=== PATIENT | female | born 1995 | race Caucasian/White ===

== ENCOUNTER 2018-04-18 11:30 | Emergency (ER) | payer SELFPAY ==
[2018-04-18 11:38] VITALS: BMI 26.2
--- NOTE | 2018-04-18 13:22 | PDOC ---
History of Present Illness - General Chief Complaint: Nausea/Vomiting Stated Complaint: NAUSEA, HEADACHE () Time Seen by Provider: 04/18/18 12:51 History Source: Patient - History of Present Illness Initial Comments: 04/18/18 13:21 22f with pmh of PCOS and appendectomy presents with vomiting for the past 3 weeks and right sided pelvic pain for the past 2 days. She is currently , unknown gestation time. She has PCOS and her last period was 6 months ago. The pain is dull with occasional sharp exacerbations when when she lays on the right side too long. She takes metformin for PCOS. This is her second , got a positive preg test 2 weeks ago. Did not seek appointment with OBGYN because she doesn't have insurance, First was a miscarriage. She had constant nausea and low appetite. 04/18/18 13:28 Denies any vaginal discharge. spotting or dysuria. Past History - Past Medical History Allergies/Adverse Reactions: Allergies Allergy/AdvReac Type Severity Reaction Status Date / Time nitrofurantoin Allergy Verified 04/18/18 11:37 Home Medications: Ambulatory Orders Vitamins (Sjr) - 1 tab PO DAILY 04/18/18 Asthma: Yes COPD: No - Surgical History Appendectomy: Yes - Suicide/Smoking/Psychosocial Hx Smoking History: Never smoked Review of Systems - Review of Systems Able to Perform ROS?: Yes Is the patient limited Divehi proficient: No Constitutional: No: Symptoms Reported HEENTM: No: Symptoms Reported Respiratory: No: Symptoms reported Cardiac (ROS): No: Symptoms Reported ABD/GI: Yes: See HPI : No: Symptoms Reported Musculoskeletal: No: Symptoms Reported Integumentary: No: Symptoms Reported Neurological: No: Symptoms reported All Other Systems: Reviewed and Negative *Physical Exam - Vital Signs Last Vital Signs Temp Pulse Resp BP Pulse Ox 97.5 F L 86 18 136/72 100 04/18/18 11:35 04/18/18 11:35 04/18/18 11:35 04/18/18 11:35 04/18/18 11:35 - Physical Exam General Appearance: Yes: Nourished, Appropriately Dressed. No: Apparent Distress HEENT: positive: EOMI, BRENDA, Normal ENT Inspection Respiratory/Chest: positive: Lungs Clear, Normal Breath Sounds. negative: Chest Tender, Respiratory Distress Cardiovascular: positive: Regular Rhythm, Regular Rate, S1, S2 Gastrointestinal/Abdominal: positive: Normal Bowel Sounds, Tender (lrq/adnexal) , Flat, Soft Extremity: positive: Normal Capillary Refill, Normal Inspection, Normal Range of Motion Neurologic: positive: Fully Oriented, Alert, Normal Mood/Affect, Normal Response , Motor Strength 5/5 Moderate Sedation - Procedure Monitoring Vital Signs: Procedure Monitoring Vital Signs Temperature 97.5 F L 04/18/18 11:35 Pulse Rate 86 04/18/18 11:35 Respiratory Rate 18 04/18/18 11:35 Blood Pressure 136/72 04/18/18 11:35 O2 Sat by Pulse Oximetry (%) 100 04/18/18 11:35 ED Treatment Course - LABORATORY CBC & Chemistry Diagram: 04/18/18 13:33 04/18/18 13:24 - RADIOLOGY Radiology Studies Ordered: Category Date Time Status <14WKS US [US] Stat Ultrasound 04/18/18 13:04 Ordered Medical Decision Making - Medical Decision Making 04/18/18 13:30 ectopic preg vs torsion vs pancreatitis WIll get beta hcg and US 04/18/18 14:49 04/18/18 16:37 Patient is 8w . Will give follow up with OBGYN at [facility] as she does not have insurance. *DC/Admit/Observation/Transfer Diagnosis at time of Disposition: First trimester - Discharge Dispostion Disposition: HOME Condition at time of disposition: Improved Decision to Admit order: No - Referrals - Patient Instructions Printed Discharge Instructions: DI for -- Discomforts and Remedies Additional Instructions: Follow up with [facility]'s [facility] services at [facility] at [address] [place] [address]. Come back to the ER for any new, worsening or concerning symptoms. - Post Discharge Activity
[2018-04-18 13:41] LABS: BASO % 0.6 % (0-2.0); EOS % 0.4 % (0-4.5); HEMATOCRIT 40.4 % (32.4-45.2); HEMOGLOBIN 13.5 GM/dL (10.7-15.3); LYMPH % 10.8 % (8-40); MCHC 33.4 g/dl (32.0-36.0); MEAN CELL VOLUME 92.7 fl (80-96); MEAN PLT VOLUME 8.5 fl (7.5-11.1); MONO % 5.4 % (3.8-10.2); NEUT % 82.8 % (42.8-82.8); PLATELET COUNT 291 K/MM3 (134-434); RBC 4.36 M/mm3 (3.60-5.2); RDW 13.3 % (11.6-15.6); WHITE BLOOD COUNT 14.2 K/mm3 (4.0-10.0)
[2018-04-18 13:42] LABS: URINE APPEARANCE SLCLOUDY; URINE BILIRUBIN NEGATIVE (<2.0 mg/dL); URINE COLOR YELLOW; URINE GLUCOSE (UA) NEGATIVE (NEGATIVE); URINE KETONE NEGATIVE (NEGATIVE); URINE LEUK ESTERASE NEGATIVE (NEGATIVE); URINE NITRITE NEGATIVE (NEGATIVE); URINE PROTEIN NEGATIVE (NEGATIVE); URINE UROBILINOGEN NEGATIVE mg/dL (0.2-1.0)
--- NOTE | 2018-04-18 14:06 | PDOC ---
Attending Attestation - Resident Resident Name: Horace Sutton - ED Attending Attestation I have performed the following: I have examined & evaluated the patient, The case was reviewed & discussed with the resident, I agree w/resident's findings & plan, Exceptions are as noted - Physicial Exam PE: 04/18/18 14:23 Patient is awake and alert, well-appearing Normal cephalic, atraumatic PERRLA, EOMI mm-dry cta rrr Abdomen soft, nondistended, minimal right lower pelvic tenderness to deep palpation without guarding rebound - Medical Decision Making 04/18/18 14:24 22-year-old female, 2 para 0, unknown gestational age with no previous care presents with signs and symptoms of hyperemesis and mild right lower pelvic pain. Patient's status post appendectomy in the past. Will rule out ectopic; we'll administer D5 LR with Reglan. Will reassess. <Jagdish Boogie - Last Filed: 04/18/18 14:23> - HPI HPI: This patient is a 22 F with PMHx of PCOS, who is currently , and presents with approx. 3 weeks of vomit and 2 days of right sided pelvic pain. Patient states that her LMP was 6 months ago. She states that 2 weeks ago she took an OTC test that came back positive. She states that she hasnt seeked care due to not having insurance. She states that she has been once in the past that ended in a miscarriage since the fetus was not viable due to congenital heart condition. She now comes in with 2 days right adnexal tenderness as well as persistent nausea and vomiting.She describes the pain as dull with occasional sharp exacerbations when when she lays on her right side too long. Past Surgical Hx: Appendectomy 04/18/18 14:35 <Sudha Cook - Last Filed: 04/18/18 14:35>
[2018-04-18] MEDS ORDERED: METOCLOPRAMIDE HCL INJECTION 10 MG/2 ML VIAL IVPUSH ONE (14:11)
[2018-04-18] MEDS ORDERED: DEXTROSE 5%-LACTATED RINGERS 1,000 ML IV SCH (14:15)
[2018-04-18] MEDS ORDERED: METOCLOPRAMIDE HCL INJECTION 10 MG/2 ML VIAL ONE (14:31)
[2018-04-18 14:59] LABS: ALK PHOS 57 U/L (45-117); ANION GAP 8 MMOL/L (8-16); BILIRUBIN,TOTAL 0.3 mg/dL (0.2-1); BLOOD UREA NITROGEN 9 mg/dL (7-18); CALCIUM 9.2 mg/dL (8.5-10.1); CHLORIDE 100 mmol/L (98-107); CO2 24 mmol/L (21-32); CREATININE 0.6 mg/dL (0.55-1.3); GLUCOSE,RANDOM 79 mg/dL (74-106); POTASSIUM 3.8 mmol/L (3.5-5.1); SGOT/AST 21 U/L (15-37); SGPT/ALT 43 U/L (13-61); SODIUM 133 mmol/L (136-145); TOT PROT 8.1 g/dl (6.4-8.2)
[2018-04-18] MEDS ORDERED: PANTOPRAZOLE SODIUM 40 MG VIAL IVPUSH ONE (15:27)
[2018-04-18] MEDS ORDERED: PANTOPRAZOLE SODIUM 40 MG/100 ML BAG IVPB ONE (16:06)
[2018-04-18 18:25] VITALS: BP 128/68; PULSE 80; TEMP 98.1
[2018-04-19 04:14] LABS: LIPASE 127 U/L (73-393)
== END 2018-04-18 18:39 | disposition home or self-care (01) ==
LOC: JER 11:30
PROC: 3E033GC Introduction of Other Therapeutic Substance into Peripheral Vein, Percutaneous Approach (ICD-10-PCS; principal; 2018-04-18)
DX: O26.891 Other specified pregnancy related conditions, first trimester (principal); Z3A.00 Weeks of gestation of pregnancy not specified; J45.909 Unspecified asthma, uncomplicated
CPT/HCPCS: 36415; 76801-TC; 80053; 81003; 83690; 84702; 85025; 86850; 86900; 86901; 87086; 87186; 99283-25

== ENCOUNTER 2018-06-30 01:21 | Emergency (ER) | payer OTHER ==
[2018-06-30 02:08] VITALS: BP 117/72; PULSE 90; TEMP 99.2; BMI 32.8
[2018-06-30] MEDS ORDERED: ACETAMINOPHEN 325 MG TABLET (FP) PO ONE (02:25)
--- NOTE | 2018-06-30 02:26 | PDOC ---
History of Present Illness - General Chief Complaint: Pain Stated Complaint: SHARP RIB PAIN/19WKS Time Seen by Provider: 06/30/18 01:51 History Source: Patient Exam Limitations: No Limitations Past History - Past Medical History Allergies/Adverse Reactions: Allergies Allergy/AdvReac Type Severity Reaction Status Date / Time nitrofurantoin Allergy Verified 06/30/18 02:06 Home Medications: Ambulatory Orders Ondansetron [Zofran *Odt*] 8 mg SL BID #20 od.tablet 04/18/18 Vitamins (Sjr) - 1 tab PO DAILY 04/18/18 Asthma: Yes COPD: No - Surgical History Appendectomy: Yes - Suicide/Smoking/Psychosocial Hx Smoking History: Never smoked Have you smoked in the past 12 months: No Information on smoking cessation initiated: No Hx Alcohol Use: No Drug/Substance Use Hx: No *Physical Exam - Vital Signs Last Vital Signs Temp Pulse Resp BP Pulse Ox 99.2 F 90 18 117/72 100 06/30/18 02:07 06/30/18 02:07 06/30/18 02:07 06/30/18 02:07 06/30/18 02:07 - Physical Exam General Appearance: No: Apparent Distress Respiratory/Chest: positive: Lungs Clear, Normal Breath Sounds. negative: Chest Tender, Respiratory Distress Cardiovascular: positive: Regular Rhythm, Regular Rate, S1, S2. negative: Murmur Gastrointestinal/Abdominal: positive: Other (gravid uterus) Extremity: negative: Swelling, Calf Tenderness Integumentary: positive: Normal Color Neurologic: positive: Alert, Normal Mood/Affect Moderate Sedation - Procedure Monitoring Vital Signs: Procedure Monitoring Vital Signs Temperature 99.2 F 06/30/18 02:07 Pulse Rate 90 06/30/18 02:07 Respiratory Rate 18 06/30/18 02:07 Blood Pressure 117/72 06/30/18 02:07 O2 Sat by Pulse Oximetry (%) 100 06/30/18 02:07 ED Treatment Course - LABORATORY CBC & Chemistry Diagram: 06/30/18 03:10 06/30/18 03:10 Medical Decision Making - Medical Decision Making 22 y/o F currently 19 weeks (hx of 1 miscarriage) presents with L sided rib pain which started yesterday that is worse with movement of body and inspiration along with mild SOB. Also had 1 episode of NBNB emesis. Denies fever , chills, cough, cp, abd pain, vaginal bleeding, urinary complaints Consider PE given patient Not clinically suspicious for DVT Bedside ultrasound done showing FHR at 140 bpm Plan: Labs, Tylenol 06/30/18 02:26 D-dimer 1103 ( adjusted D-dimer for second trimester is <1000) Patient discussed CT imaging; also discussed getting BLE US to r/o clot legs if hesitant about getting a CT However, patient does not want to wait for ultrasound and also not comfortable with getting a CT scan done Has noted improvement in rib pain Patient signed out AMA; risks including possible discussed Patient is A&Ox3 and has capacity to make decisions She has f/u with her CLERICAL METHODS ANALYST in 2 days Advised to return for any worsening symptoms 06/30/18 04:48 *DC/Admit/Observation/Transfer Diagnosis at time of Disposition: Rib pain on left side - Discharge Dispostion Disposition: AGAINST MEDICAL ADVICE Condition at time of disposition: Stable Decision to Admit order: No - Referrals - Patient Instructions Additional Instructions: Thank you for choosing [facility]. It was a pleasure taking care of you. There was concern for a clot in your lungs, for which you were recommended for CT scan of chest or to consider getting ultrasound of your legs to rule out clot in legs Risks of not getting studies done include worsening of condition or possible Be sure to follow-up with your CLERICAL METHODS ANALYST in 2 days Return to the Emergency Department if your symptoms worsen or persist, have chest pain, shortness of breath, cough up blood, severe abdominal pain, vaginal bleeding or other concerning symptoms. - Post Discharge Activity
[2018-06-30] MEDS ORDERED: ACETAMINOPHEN 325 MG TABLET (FP) ONE (03:11)
[2018-06-30 03:21] LABS: BASO % 0.9 % (0-2.0); HEMATOCRIT 35.8 % (32.4-45.2); HEMOGLOBIN 12.7 GM/dL (10.7-15.3); LYMPH % 16.1 % (8-40); MCH 33.8 pg (25.7-33.7); MCHC 35.4 g/dl (32.0-36.0); MEAN CELL VOLUME 95.2 fl (80-96); MEAN PLT VOLUME 8.9 fl (7.5-11.1); MONO % 7.8 % (3.8-10.2); NEUT % 74.2 % (42.8-82.8); PLATELET COUNT 254 K/MM3 (134-434); RBC 3.76 M/mm3 (3.60-5.2); RDW 13.5 % (11.6-15.6); WHITE BLOOD COUNT 14.1 K/mm3 (4.0-10.0)
[2018-06-30 03:45] LABS: ANION GAP 10 MMOL/L (8-16); BLOOD UREA NITROGEN 9 mg/dL (7-18); CALCIUM 9.2 mg/dL (8.5-10.1); CHLORIDE 106 mmol/L (98-107); CO2 21 mmol/L (21-32); CREATININE 0.4 mg/dL (0.55-1.3); GLUCOSE,RANDOM 91 mg/dL (74-106); POTASSIUM 3.9 mmol/L (3.5-5.1); SODIUM 137 mmol/L (136-145)
== END 2018-06-30 05:07 | disposition left against medical advice (07) ==
LOC: JER 01:21
PROC: BY4CZZZ Ultrasonography of Second Trimester, Single Fetus (ICD-10-PCS; principal; 2018-06-30)
DX: O26.892 Other specified pregnancy related conditions, second trimester (principal); R07.81 Pleurodynia; Z3A.19 19 weeks gestation of pregnancy
CPT/HCPCS: 36415; 76801-TC; 80048; 85025; 85379; 99282-25

== ENCOUNTER 2018-11-14 08:00 | Inpatient (IN) | payer OTHER ==
[2018-11-19 17:32] VITALS: BMI 37.8
[2018-11-19 17:39] LABS: BASO % 0.7 % (0-2.0); EOS % 0.5 % (0-4.5); HEMATOCRIT 26.9 % (32.4-45.2); HEMOGLOBIN 8.6 GM/dL (10.7-15.3); LYMPH % 14.1 % (8-40); MCH 25.1 pg (25.7-33.7); MCHC 32.2 g/dl (32.0-36.0); MEAN CELL VOLUME 77.9 fl (80-96); MEAN PLT VOLUME 9.5 fl (7.5-11.1); MONO % 4.5 % (3.8-10.2); NEUT % 80.2 % (42.8-82.8); PLATELET COUNT 168 K/MM3 (134-434); RBC 3.45 M/mm3 (3.60-5.2); WHITE BLOOD COUNT 9.6 K/mm3 (4.0-10.0)
[2018-11-19 17:52] LABS: INR 0.98 (0.83-1.09); PROTHROMBIN TIME (PATIENT) 11.6 SEC (9.7-13.0)
[2018-11-19 17:55] LABS: ACTIVATED PTT 24.6 SECONDS (25.2-36.5)
[2018-11-19 18:07] LABS: BLOOD UREA NITROGEN 8.4 mg/dL (7-18); CALCIUM 8.7 mg/dL (8.5-10.1); CREATININE 0.6 mg/dL (0.55-1.3); POTASSIUM 3.5 mmol/L (3.5-5.1)
[2018-11-19] MEDS ORDERED: DEXTROSE 5%-LACTATED RINGERS 1,000 ML IV SCH (19:00)
[2018-11-19] MEDS ORDERED: DINOPROSTONE 10 MG VAGINAL SUPPOSITORY VG ONE (19:03)
--- NOTE | 2018-11-19 19:09 | HP ---
Past Medical History - Admission Chief Complaint: Induction of labor History of Present Illness: 23 yo , @ 39.5 weeks gestation, seen in office today and was sent for induction of labor due to suspicion of macrosomia. Upon admission she was 1cm dilated. History Source: Patient Limitations to Obtaining History: No Limitations - Past Medical History ...: 2 ...Para: 0 ...Term: 0 ...: 0 ...Spon : 1 ...Induced : 0 ...Multiple Gestation: 0 ...EDC by Sono: 11/21/18 - Past Surgical History Past Surgical History: Yes: None Hx Myomectomy: No Hx Transabdominal Cerclage: No - Smoking History Smoking history: Never smoked Have you smoked in the past 12 months: No - Alcohol/Substance Use Hx Alcohol Use: No - Social History Usual Living Arrangement: Yes: With Significant Other History of Recent Travel: No Home Medications - Allergies Allergies/Adverse Reactions: Allergies Allergy/AdvReac Type Severity Reaction Status Date / Time nitrofurantoin Allergy Verified 11/19/18 17:21 - Home Medications Home Medications: Ambulatory Orders Albuterol Sulfate Inhaler - [Ventolin Hfa Inhaler -] 1 - 2 inh PO Q4H PRN Family Disease History - Family Disease History Family History: Unremarkable Review of Systems - Review of Systems Constitutional: reports: No Symptoms Eyes: reports: No Symptoms HENT: reports: No Symptoms Neck: reports: No Symptoms Cardiovascular: reports: No Symptoms Respiratory: reports: No Symptoms Gastrointestinal: reports: No Symptoms Genitourinary: reports: Pain Breasts: reports: No Symptoms Reported Musculoskeletal: reports: No Symptoms Integumentary: reports: No Symptoms Neurological: reports: No Symptoms Endocrine: reports: No Symptoms Hematology/Lymphatic: reports: No Symptoms Psychiatric: reports: No Symptoms Pain Intensity: 3 Physical Exam - Maternity Vital Signs: Vital Signs Temperature 98.2 F 11/19/18 18:00 Pulse Rate 89 11/19/18 18:00 Respiratory Rate 18 11/19/18 18:00 Blood Pressure 131/72 11/19/18 18:00 O2 Sat by Pulse Oximetry (%) Constitutional: Yes: Well Nourished Eyes: Yes: Conjunctiva Clear HENT: Yes: Atraumatic Neck: Yes: Supple Cardiovascular: Yes: Regular Rate and Rhythm Lungs: Clear to auscultation Breast(s): Yes: WNL - Abdominal Exam/OB Number of Fetuses: Single Presentation: Vertex - Vaginal Exam/OB Dilatation (cm): 1 Effacement (%): 60 Amniotic Membrane Status: Intact Presentation: Vertex/Position Station: -3 - Physical Exam Integumentary: Yes: WNL ...Motor Strength: WNL Psychiatric: Yes: Alert, Oriented - Labs Lab Results: CBC, BMP 11/19/18 17:20 11/19/18 17:20 Problem List - Problems (1) 39 weeks gestation of Code(s): Z3A.39 - 39 WEEKS GESTATION OF (2) Macrosomia Code(s): P08.0 - EXCEPTIONALLY LARGE BABY Assessment/Plan 39 weeks gestation Suspicion of macrosomia Cervidil induction Re-evaluate in 12 hours or before if indicated
[2018-11-20] MEDS ORDERED: AMPICILLIN SODIUM 2 GM VIAL ONE (04:27)
[2018-11-20] MEDS ORDERED: AMPICILLIN - 2 GM in SODIUM CHLORIDE 100 ML IVPB ONE (04:30)
[2018-11-20] MEDS ORDERED: FENTANYL/BUPIVACAINE/NS/PF - PCEA - 50 ML DISP.SYRIN EP ONE ×3 (08:26→17:34)
[2018-11-20] MEDS ORDERED: AMPICILLIN SODIUM 1 GM VIAL ONE ×3 (08:26→16:00)
[2018-11-20] MEDS ORDERED: LIDO 2%/EPI 1:200000 PRESRVFRE (20 ML SDVIAL) ONE (08:32)
[2018-11-20] MEDS ORDERED: BUPIVACAINE HCL/PF 0.25% (2.5MG/ML) 10 ML VIAL ONE (08:32)
--- NOTE | 2018-11-20 08:33 | PN ---
Progress Note (short form) - Note Progress Note: Patient seen and evaluated, she c/o moderate discomfort. She's status post cervidil induction. FHR : Reassuring [place] : + irregular contractions VE : 4 70/-3 AROM ( clear ) A/P 39 weeks gestation Suspicion of macrosomia Polyhydramnios Epidural anesthesia Pitocin augmentation Anticipate Problem List - Problems (1) 39 weeks gestation of Code(s): Z3A.39 - 39 WEEKS GESTATION OF (2) Macrosomia Code(s): P08.0 - EXCEPTIONALLY LARGE BABY
[2018-11-20] MEDS ORDERED: OXYTOCIN 30 UNITS in 0.9% NS 30 UNIT/500 ML INFUS.BAG IVPB SCH (08:45)
[2018-11-20] MEDS ORDERED: NALOXONE HCL 0.4 MG/ML VIAL IVPUSH PRN (08:58)
[2018-11-20] MEDS: AMPICILLIN - 1 GM in SODIUM CHLORIDE 100 ML IVPB SCH ×4 (09:00→20:43)
[2018-11-20] MEDS ORDERED: FENTANYL/BUPIVACAINE/NS/PF - PCEA - 50 ML DISP.SYRIN EP SCH (09:00)
[2018-11-20] MEDS ORDERED: OXYTOCIN 30 UNITS in 0.9% NS 30 UNIT/500 ML INFUS.BAG IVPB ONE (09:11)
[2018-11-20] MEDS ORDERED: ELECTROLYTE-148 SOLN 1,000 ML IV SCH ×2 (17:15→17:45)
[2018-11-20] MEDS ORDERED: CITRIC ACID/SODIUM CITRATE 30 ML UNIT-DOSE CUP PO ONE (20:03)
--- NOTE | 2018-11-20 20:03 | PN ---
Progress Note (short form) - Note Progress Note: Patient seen and evaluated, she's lying in bed; epidural in place. She's on Pitocin augmentation. FHR : Reassuring [place] : + regular contractions VE : /-2 A/P 39 weeks gestation Suspicion of macrosomia Polyhydramnios Arrest of dilatation Pre op for primary Prep and shave Consent signed Problem List - Problems (1) 39 weeks gestation of Code(s): Z3A.39 - 39 WEEKS GESTATION OF (2) Macrosomia Code(s): P08.0 - EXCEPTIONALLY LARGE BABY
[2018-11-20] MEDS ORDERED: OXYTOCIN 20 UNITS in 0.9% NS 20 UNIT/1,000 ML INFUS.BAG IV ONE (20:32)
[2018-11-20] MEDS ORDERED: SODIUM CHLORIDE 0.9% P/F 10 ML VIAL IJ ONE (21:05)
[2018-11-20] MEDS ORDERED: ceFAZolin SODIUM 1 GM VIAL ONE (21:05)
[2018-11-20] MEDS ORDERED: ONDANSETRON 4 MG/2 ML VIAL IVPUSH PRN (21:13)
[2018-11-20] MEDS ORDERED: OXYTOCIN 10 UNITS/ML VIAL ONE (21:35)
[2018-11-20] MEDS ORDERED: KETOROLAC TROMETHAMINE 30 MG/1 ML VIAL ONE (21:44)
[2018-11-20] MEDS ORDERED: METHYLERGONOVINE MALEATE 0.2 MG/1 ML AMP IM PRN (22:22)
[2018-11-20] MEDS ORDERED: IBUPROFEN 800 MG/8 ML IJ IVPB PRN (22:22)
--- NOTE | 2018-11-20 22:27 | OP ---
Operative Note - Note: Operative Date: 11/20/18 Pre-Operative Diagnosis: 39 weeks gestation / Suspected macrosomia / Arrest of dilatation Operation: Primary Low Transverse Findings: Large baby boy in cephallic position Post-Operative Diagnosis: Other (Arrest of dilatation / Macrosomia) Surgeon: Hoa Corbett Political Researcher: Erin Allan Anesthesia: Epidural Specimens Removed: Placenta Estimated Blood Loss (mls): 700 Operative Report Dictated: Yes
[2018-11-20] MEDS ORDERED: OXYTOCIN 20 UNITS in 0.9% NS 20 UNIT/1,000 ML INFUS.BAG IV SCH (22:30)
--- NOTE | 2018-11-21 06:33 | PN ---
Post Note - Post Date of Delivery: 11/20/18 Post Day: 1 Vital Signs: Vital Signs - 24 hr 11/20/18 11/20/18 11/20/18 08:00 08:55 09:00 Temperature 98 F Pulse Rate 71 79 82 Respiratory 20 17 17 Rate Blood Pressure 136/80 123/73 128/77 O2 Sat by Pulse 100 100 Oximetry (%) 11/20/18 11/20/18 11/20/18 09:05 09:10 09:25 Temperature Pulse Rate 78 78 70 Respiratory 17 17 17 Rate Blood Pressure 125/72 118/70 117/74 O2 Sat by Pulse 100 100 100 Oximetry (%) 11/20/18 11/20/18 11/20/18 09:45 10:00 10:15 Temperature 98.2 F Pulse Rate 71 74 69 Respiratory 17 17 16 Rate Blood Pressure 117/66 119/72 113/69 O2 Sat by Pulse 100 100 100 Oximetry (%) 11/20/18 11/20/18 11/20/18 10:30 10:45 11:00 Temperature Pulse Rate 83 75 71 Respiratory 16 16 16 Rate Blood Pressure 114/71 106/62 113/67 O2 Sat by Pulse 100 100 100 Oximetry (%) 11/20/18 11/20/18 11/20/18 11:15 11:30 11:45 Temperature 98.3 F Pulse Rate 68 69 74 Respiratory 16 16 16 Rate Blood Pressure 118/66 118/64 114/72 O2 Sat by Pulse 100 100 100 Oximetry (%) 11/20/18 11/20/18 11/20/18 12:00 12:15 12:30 Temperature Pulse Rate 74 82 71 Respiratory 16 82 H 17 Rate Blood Pressure 118/68 118/81 121/79 O2 Sat by Pulse 100 16 L 100 Oximetry (%) 11/20/18 11/20/18 11/20/18 12:45 13:00 13:15 Temperature Pulse Rate 74 72 74 Respiratory 16 16 18 Rate Blood Pressure 117/71 116/71 118/71 O2 Sat by Pulse 100 100 100 Oximetry (%) 11/20/18 11/20/18 11/20/18 13:30 13:45 14:00 Temperature 98.2 F Pulse Rate 69 73 71 Respiratory 17 16 17 Rate Blood Pressure 116/71 115/73 117/74 O2 Sat by Pulse 100 100 100 Oximetry (%) 11/20/18 11/20/18 11/20/18 14:15 14:30 14:45 Temperature Pulse Rate 72 72 72 Respiratory 16 16 16 Rate Blood Pressure 122/70 125/75 123/77 O2 Sat by Pulse 100 100 100 Oximetry (%) 11/20/18 11/20/18 11/20/18 15:00 15:15 15:30 Temperature Pulse Rate 67 68 77 Respiratory 16 17 17 Rate Blood Pressure 125/71 119/71 123/75 O2 Sat by Pulse 100 100 100 Oximetry (%) 11/20/18 11/20/18 11/20/18 15:45 16:00 16:15 Temperature 98.2 F Pulse Rate 72 71 72 Respiratory 16 16 17 Rate Blood Pressure 127/82 121/74 124/77 O2 Sat by Pulse 100 99 100 Oximetry (%) 11/20/18 11/20/18 11/20/18 16:30 16:45 17:00 Temperature 98.6 F Pulse Rate 70 73 75 Respiratory 17 17 17 Rate Blood Pressure 122/80 126/81 125/83 O2 Sat by Pulse 99 100 100 Oximetry (%) 11/20/18 11/20/18 11/20/18 17:15 17:30 17:45 Temperature Pulse Rate 71 84 72 Respiratory 17 17 17 Rate Blood Pressure 127/83 128/82 127/82 O2 Sat by Pulse 100 100 100 Oximetry (%) 11/20/18 11/20/18 11/20/18 18:00 18:15 18:30 Temperature Pulse Rate 79 79 80 Respiratory 17 17 16 Rate Blood Pressure 131/88 111/63 111/63 O2 Sat by Pulse 100 100 97 Oximetry (%) 11/20/18 11/20/18 11/20/18 18:45 19:00 19:15 Temperature 98.2 F Pulse Rate 84 80 76 Respiratory 17 18 18 Rate Blood Pressure 110/67 120/66 105/62 O2 Sat by Pulse 98 98 99 Oximetry (%) 11/20/18 11/20/18 11/20/18 19:30 19:44 19:45 Temperature Pulse Rate 80 81 Respiratory 18 18 Rate Blood Pressure 104/61 104/60 O2 Sat by Pulse 97 99 97 Oximetry (%) 11/20/18 11/20/18 11/20/18 20:00 20:50 21:00 Temperature Pulse Rate 84 82 79 Respiratory 18 17 17 Rate Blood Pressure 120/76 132/80 133/80 O2 Sat by Pulse 99 100 100 Oximetry (%) 11/20/18 11/20/18 11/20/18 21:15 22:35 22:45 Temperature Pulse Rate 78 81 80 Respiratory 17 17 17 Rate Blood Pressure 132/81 123/58 L 117/55 L O2 Sat by Pulse 100 100 100 Oximetry (%) 11/20/18 11/20/18 11/20/18 23:00 23:15 23:30 Temperature 98.4 F Pulse Rate 78 77 76 Respiratory 17 17 17 Rate Blood Pressure 116/61 120/60 114/59 L O2 Sat by Pulse 100 100 100 Oximetry (%) 11/20/18 11/21/18 11/21/18 23:45 00:00 00:54 Temperature 98.9 F 98.8 F Pulse Rate 82 80 78 Respiratory 17 18 18 Rate Blood Pressure 117/64 117/67 121/73 O2 Sat by Pulse 98 99 Oximetry (%) 11/21/18 11/21/18 11/21/18 02:00 04:00 05:43 Temperature 99.4 F Pulse Rate 91 H Respiratory 18 18 18 Rate Blood Pressure 121/74 O2 Sat by Pulse Oximetry (%) 11/21/18 06:00 Temperature 97.9 F Pulse Rate 107 H Respiratory 20 Rate Blood Pressure 114/61 O2 Sat by Pulse Oximetry (%) Labs: Laboratory Results - last 24 hr 11/19/18 17:20 RPR Titer Nonreactive - Subjective Subjective: No Complaints - Objective Afebrile: Yes Abdomen: Soft, Non-tender Uterus: Fundus firm Vagina: Scant lochia Extremities: Non-tender - Assessment/Plan (1) delivery delivered Assessment: Other (POD 1) Plan: Routine Care
[2018-11-21 06:53] LABS: BASO % 0.3 % (0-2.0); EOS % 0.9 % (0-4.5); HEMATOCRIT 22.1 % (32.4-45.2); LYMPH % 14.5 % (8-40); MCH 24.7 pg (25.7-33.7); MCHC 31.5 g/dl (32.0-36.0); MEAN CELL VOLUME 78.2 fl (80-96); MONO % 6.6 % (3.8-10.2); NEUT % 77.7 % (42.8-82.8); PLATELET COUNT 140 K/MM3 (134-434); RBC 2.83 M/mm3 (3.60-5.2); RDW 19.4 % (11.6-15.6); WHITE BLOOD COUNT 9.6 K/mm3 (4.0-10.0)
[2018-11-21] MEDS ORDERED: PNEUMOC 13-VAL CONJ-DIP CRM/PF 0.5 ML DISP.SYRIN IM ONE (10:00)
[2018-11-21] MEDS ORDERED: PNEUMOCOCCAL 23 VACCINE 0.5 ML VIAL IM ONE (10:00)
--- NOTE | 2018-11-21 10:56 | PN ---
Progress Note (short form) - Note Progress Note: Post op day#1.S/P C Section under epidural anesthesia with duramorph uneventful.Patient stable and has little pain for which she is on medication.No any anesthesia related problem.Patient Dc from the anesthesia care.
[2018-11-21] MEDS: ACETAMINOPHEN 325 MG TABLET (FP) PO PRN (18:57)
[2018-11-21] MEDS: IBUPROFEN 600 MG TABLET (FP) PO PRN (18:57)
[2018-11-21] MEDS: oxyCODONE HCL 5 MG TABLET PO PRN (21:09)
[2018-11-21] MEDS: SIMETHICONE 80 MG TAB.CHEW (FP) PO PRN (21:09)
[2018-11-21] MEDS ORDERED: BISACODYL 10 MG SUPP.RECT RC PRN (22:22)
[2018-11-22] MEDS: oxyCODONE HCL 5 MG TABLET PO PRN ×2 (03:15→19:44)
[2018-11-22] MEDS: SIMETHICONE 80 MG TAB.CHEW (FP) PO PRN ×3 (03:16→19:45)
[2018-11-22] MEDS: ACETAMINOPHEN 325 MG TABLET (FP) PO PRN ×3 (03:16→19:44)
--- NOTE | 2018-11-22 06:15 | PN ---
Post Progress Note - Subjective Subjective: Pt seen/evaluated and doing well. Pain controlled. Tolerating diet, ambulating, voiding. Denies CP/SOB/lightheaded or dizziness. Post Day: 2 Type of Delivery: Primary C/S Vital Signs: Vital Signs Temperature 98.4 F 11/21/18 22:00 Pulse Rate 98 H 11/21/18 22:00 Respiratory Rate 20 11/21/18 22:00 Blood Pressure 130/76 11/21/18 22:00 O2 Sat by Pulse Oximetry (%) 99 11/21/18 00:00 Uterus: Yes: Fundus Firm Incision: Yes: Dressing dry and intact Abdomen/GI: Yes: Abdomen soft Lochia: Yes: Rubra Extremities: Yes: Calves non-tender. No: Calf tenderness Perineum: Yes: Intact Activity: Ambulating - Labs Labs: CBC WBC 9.6 K/mm3 (4.0-10.0) 11/21/18 06:20 RBC 2.83 M/mm3 (3.60-5.2) L 11/21/18 06:20 Hgb 7.0 GM/dL (10.7-15.3) L 11/21/18 06:20 Hct 22.1 % (32.4-45.2) L D 11/21/18 06:20 MCV 78.2 fl (80-96) L 11/21/18 06:20 MCH 24.7 pg (25.7-33.7) L 11/21/18 06:20 MCHC 31.5 g/dl (32.0-36.0) L 11/21/18 06:20 RDW 19.4 % (11.6-15.6) H 11/21/18 06:20 Plt Count 140 K/MM3 (134-434) 11/21/18 06:20 MPV 9.0 fl (7.5-11.1) 11/21/18 06:20 Absolute Neuts (auto) 7.5 K/mm3 (1.5-8.0) 11/21/18 06:20 Neutrophils % 77.7 % (42.8-82.8) 11/21/18 06:20 Lymphocytes % 14.5 % (8-40) 11/21/18 06:20 Monocytes % 6.6 % (3.8-10.2) 11/21/18 06:20 Eosinophils % 0.9 % (0-4.5) 11/21/18 06:20 Basophils % 0.3 % (0-2.0) 11/21/18 06:20 Nucleated RBC % 0 % (0-0) 11/21/18 06:20 Assessment/Plan 23 y/o POD#2 s/p delivery Anemia with Hgb 7.0, will repeat CBC this a.m., continue PNVs and PO Iron for now encourage OOB regular diet PO pain meds routine care
[2018-11-22 08:35] LABS: BASO % 0.2 % (0-2.0); EOS % 1.5 % (0-4.5); LYMPH % 11.9 % (8-40); MCH 24.7 pg (25.7-33.7); MCHC 31.4 g/dl (32.0-36.0); MEAN CELL VOLUME 78.5 fl (80-96); MONO % 7.4 % (3.8-10.2); RBC 2.67 M/mm3 (3.60-5.2); RDW 19.7 % (11.6-15.6); WHITE BLOOD COUNT 11.3 K/mm3 (4.0-10.0)
[2018-11-22 09:08] LABS: HEMOGLOBIN 6.6 GM/dL (10.7-15.3)
[2018-11-22 09:09] LABS: PLATELET COUNT 160 K/MM3 (134-434)
[2018-11-22] MEDS: IBUPROFEN 600 MG TABLET (FP) PO PRN (09:46)
[2018-11-22] MEDS: FERROUS SO4 325 MG TABLET (FP) PO SCH ×3 (10:30→17:38)
[2018-11-22 23:08] LABS: BASO % 0.2 % (0-2.0); HEMOGLOBIN 9.2 GM/dL (10.7-15.3); MCH 25.7 pg (25.7-33.7); MCHC 31.6 g/dl (32.0-36.0); MEAN CELL VOLUME 81.2 fl (80-96); MEAN PLT VOLUME 8.8 fl (7.5-11.1); MONO % 6.1 % (3.8-10.2); NEUT % 76.7 % (42.8-82.8); PLATELET COUNT 171 K/MM3 (134-434); RBC 3.57 M/mm3 (3.60-5.2); RDW 18.6 % (11.6-15.6); WHITE BLOOD COUNT 12.6 K/mm3 (4.0-10.0)
[2018-11-23] MEDS: SIMETHICONE 80 MG TAB.CHEW (FP) PO PRN (02:47)
[2018-11-23] MEDS: ACETAMINOPHEN 325 MG TABLET (FP) PO PRN ×2 (02:47→07:40)
[2018-11-23] MEDS: oxyCODONE HCL 5 MG TABLET PO PRN (02:47)
[2018-11-23 06:56] LABS: BASO % 0.3 % (0-2.0); EOS % 1.9 % (0-4.5); HEMATOCRIT 27.9 % (32.4-45.2); LYMPH % 16.9 % (8-40); MCH 25.8 pg (25.7-33.7); MCHC 32.3 g/dl (32.0-36.0); MEAN CELL VOLUME 79.9 fl (80-96); MEAN PLT VOLUME 8.8 fl (7.5-11.1); MONO % 6.2 % (3.8-10.2); NEUT % 74.7 % (42.8-82.8); PLATELET COUNT 176 K/MM3 (134-434); RBC 3.49 M/mm3 (3.60-5.2); RDW 18.3 % (11.6-15.6); WHITE BLOOD COUNT 12.6 K/mm3 (4.0-10.0)
[2018-11-23] MEDS: IBUPROFEN 600 MG TABLET (FP) PO PRN (07:40)
[2018-11-23] MEDS: FERROUS SO4 325 MG TABLET (FP) PO SCH ×2 (07:40→13:18)
[2018-11-23 09:08] LABS: ANISOCYTOSIS 2+; MACROCYTOSIS 0; PLATELET ESTIMATE NORMAL; TARGET CELLS 1+
[2018-11-23 09:24] VITALS: BP 128/82; PULSE 80; TEMP 98.1
--- NOTE | 2018-11-23 23:43 | DS ---
Physical Exam-SCIENTIFIC DIRECTOR Vital Signs: Vital Signs Temperature 98.1 F 11/23/18 09:22 Pulse Rate 80 11/23/18 09:22 Respiratory Rate 18 11/23/18 09:22 Blood Pressure 128/82 11/23/18 09:22 O2 Sat by Pulse Oximetry (%) 99 11/21/18 00:00 Constitutional: Yes: Well Nourished, No Distress ....Post : Yes: Uterus firm, Uterus non-tender Extremities: Yes: WNL Edema: No Wound/Incision: Yes: Steri Strips, Open to air Labs: CBC, BMP 11/23/18 06:34 11/19/18 17:20 Delivery - Delivery Section: Low Flap Transverse Type of Anesthesia: Epidural Episiotomy/Laceration: None EBL (cc): 700 Delivery, Single - Stages of Labor Date 1st Stage Initiatied: 11/20/18 Time 1st Stage Initiated: 08:00 Date of Delivery: 11/20/18 Time of Delivery: 21:43 Time Placenta Delivered: 21:44 Placenta: Yes: Manual Removal - Condition of Courier Delivery Driver/Recovery Collector Present: Yes Name: [facility] Infant Gender: Male Weight: 9 lb 1 oz Position: Left, OT Total Hours ROM (Hrs/Mins): 13 hours 29 minutes - 1 Minute Total Score: 9 5 Minutes Total Score: 9 - Feeding Plan Initial Plan: Exclusive throughout hospitalization Discharge Summary Reason For Visit: INDUCTION OF LABOR Procedures: Principal: Section Hospital Course: Unremarkable Condition: Good - Instructions Diet, Activity, Other Instructions: Physical activity Resume your normal everyday activity as tolerated no heavy lifting or exercise until seen by your surgeon. You may walk unlimited naren of and climb stairs. You may resume driving the car when you feel safe and comfortable behind the wheel. No sexual activity as instructed. Wound care If you have a bandage, leave it on, and keep dry for 48-72 hours. After that time discard the outer bandage. If they are tapes on the skin under the out of bandage leave them in place. They will peel off in the next 7 to 10 days. Do Not Peel them off. You may shower the day after surgery. If there are tapes present on the skin, you may shower over them. Diet There are no dietary restrictions. Eat healthy, high-fiber foods. Drink 6 to 8 glasses of liquid each day. This will assist in keeping your bowels are regular. Pain management You may take Tylenol or acetaminophen or Ibuprofen (for example, Motrin, Advil etc.) from my pain prescription medication is ordered should be taken as prescribed for moderate to severe pain. Call MD for any of the following: Severe pain not relieved by medication Fever of 101 or higher Excessive bleeding or drainage on dressing Inability to urinate Referrals: Hoa Corbett MD [Staff Physician] - Disposition: HOME - Home Medications Comprehensive Discharge Medication List: Ambulatory Orders Albuterol Sulfate Inhaler - [Ventolin Hfa Inhaler -] 1 - 2 inh PO Q4H PRN Ferrous Sulfate [Feosol] 325 mg PO DAILY #30 tablet 11/23/18 Ibuprofen [Motrin -] 600 mg PO QID #28 tablet 11/23/18
--- NOTE | 2018-11-26 16:28 | PATH ---
Surgical Pathology Report Patient Name: SHAJI IBARRA Med. Rec. #: [id number] /Age/Gender: 1995 (Age: 23) / F Account: [id number] Location: [facility] OBS/PLANT UTILITIES ENGINEER Taken: 11/20/2018 Received: 11/21/2018 Reported: 11/26/2018 Physicians: Hoa Corbett M.D. Specimen(s) Received PLACENTA Clinical History , SAB x1, 39.6 weeks' gestation Suspected LGA, polyhydramnios, arrest of dilatation Final Diagnosis PLACENTA: THIRD TRIMESTER PLACENTA. TRIVASCULAR CORD. MEMBRANES WITH NO DIAGNOSTIC ABNORMALITIES. Electronically Signed Chris Lombardo M.D. Gross Description The specimen is received fresh labeled placenta and is a 579 gram, 20.0 x 16.5 x 3.2 cm. placenta with attached membranes and umbilical cord. The attached membranes are brown, translucent with focal opacities and insert marginally. The umbilical cord measures 36 cm. in length and averages 1 cm. in diameter. The cord inserts eccentrically, 6 cm. to the nearest margin. No true knots or strictures are identified. Cut surface of the umbilical cord reveals 3 vessels. The surface is [place]-blue with minimal fibrin deposition and appropriate caliber vessels. The maternal surface is red-brown with focal defects. Sectioning reveals red-brown, spongy parenchyma. No lesions are identified. Ramp Jockey sections are submitted in three cassettes as follows: 1- membrane rolls and umbilical cord; 2-3- full thickness sections of placenta. 11/23/2018 saudi11/23/2018
--- NOTE | 2018-11-27 07:05 | OP ---
DATE OF OPERATION: 11/20/2018 PREOPERATIVE DIAGNOSIS: A 39-week gestation with suspicion of macrosomia. POSTOPERATIVE DIAGNOSIS: A 39-week gestation with macrosomia. SURGEON: Hoa Corbett MD MANUFACTURED BUILDINGS REPAIRER: Erin Allan MD ANESTHESIA: Epidural. COMPLICATIONS: None. ESTIMATED BLOOD LOSS: 700 mL. DESCRIPTION OF PROCEDURE: Patient was taken to the operating room, where epidural anesthesia was found to be adequate. Patient was then prepped and draped in proper sterile fashion. A Pfannenstiel skin incision was made and carried down through the underlying layer of fascia. The fascia was incised in the midline and extended laterally. The superior aspect of the fascial incision was then grasped with a Jenn clamp, elevated, and the rectus muscle dissected out bluntly. Attention was then turned to the inferior aspect of the fascial incision, which in a similar fashion was then grasped with the Jenn clamp, elevated, and the rectus muscle dissected out bluntly. The rectus muscle was then in the midline. The peritoneum was identified and entered sharply with the Metzenbaum scissors. This incision was extended superiorly and inferiorly with good visualization of the bladder. Then, the vesicouterine peritoneum was then grasped with a pickup and entered sharply with the Metzenbaum scissors. This incision was extended laterally, and a bladder flap created digitally. The bladder blade was inserted, and the lower uterine segment was then incised using the 10 blade. This incision was then extended laterally, and the head delivered atraumatically. The nose and mouth were suctioned, and the cord clamped and cut. The infant was handed to the awaiting stenographer secretary. The placenta was removed manually. The uterus exteriorized and cleared of all clots and debris. The uterine incision was repaired using 0 Biosyn in a running locked fashion. The 2nd layer of the same suture was used as a means to provide excellent hemostasis. Then, the pelvis was then completely irrigated, and the uterus was returned to the abdomen. Then, the peritoneum was closed using 2-0 Biosyn. The fascia was reapproximated using 0 Vicryl in a running fashion, and the skin was closed in a subcuticular fashion using 3-0 Vicryl. Patient tolerated the procedure well. Patient was then taken to PACU in stable condition. PATHOLOGY: Placenta. HOA CORBETT M.D. SHAYAN/[id number]
== END 2018-11-23 15:05 | disposition home or self-care (01) | DRG 540 ==
LOC: JLDR 11-19 16:30 → J3W 11-21 00:15
PROVIDERS: ADMIT Obstetrics & Gynecology; ATTEND Obstetrics & Gynecology
PROC: 10D00Z1 Extraction of Products of Conception, Low, Open Approach (ICD-10-PCS; principal; 2018-11-20)
DX: O36.63X0 Maternal care for excessive fetal growth, third trimester, not applicable or unspecified (principal); O40.3XX0 Polyhydramnios, third trimester, not applicable or unspecified; O62.0 Primary inadequate contractions; O99.02 Anemia complicating childbirth; D64.9 Anemia, unspecified; Z3A.39 39 weeks gestation of pregnancy; Z37.0 Single live birth
CPT/HCPCS: 36415; 36430; 36511; 80048; 85025; 85610; 85730; 86593; 86850; 86900; 86901; 86922; 88307-TC; 90732; G0009; P9038; P9058

== ENCOUNTER 2022-10-23 02:52 | Emergency (ER) | payer OTHER ==
[2022-10-23 02:59] VITALS: RESP 18; BMI 33.5
[2022-10-23] MEDS ORDERED: AMOX TR/POT CLAV 875MG/125MG TABLETS (FP) PO ONE (03:43)
[2022-10-23] MEDS ORDERED: AMOX TR/POT CLAV 875MG/125MG TABLETS (FP) ONE (03:46)
[2022-10-23] MEDS ORDERED: SODIUM CHLORIDE 500 ML IV ONE ×2 (04:50→05:50)
[2022-10-23 04:52] VITALS: BP 118/73; PULSE 82; TEMP 98.2
[2022-10-23 05:19] LABS: THROAT:GRP A STREP NOT DETECTED (NOTDETECTED)
== END 2022-10-23 05:38 | disposition home or self-care (01) ==
LOC: JER 02:52
DX: O26.893 Other specified pregnancy related conditions, third trimester (principal); H92.03 Otalgia, bilateral; O99.353 Diseases of the nervous system complicating pregnancy, third trimester; H66.93 Otitis media, unspecified, bilateral; R09.81 Nasal congestion; O24.410 Gestational diabetes mellitus in pregnancy, diet controlled; Z3A.35 35 weeks gestation of pregnancy
CPT/HCPCS: 0241U-QW; 82962; 87651; 99283-25